=== PATIENT | female | born 2000 | race African-American/Black ===

== ENCOUNTER 2018-02-14 14:07 | Emergency (ER) | payer OTHER ==
[~2018-02-14] VITALS: Ht 160 cm; Wt 63.5 kg
[~2018-02-14 14:07] MED LIST: DEPO-PROVER150 MG/M1 IM; MACROBID 100 M100 M1 PO
[2018-02-14] MEDS ORDERED: PRENATAL PO (14:20)
[2018-02-14] MEDS ORDERED: FLAGYL500 MG PO (14:26)
[2018-02-14 14:59] LABS: URINE BILIRUBIN NEGATIVE (Negative); URINE BLOOD NEGATIVE (Negative); URINE CLARITY CLEAR; URINE COLOR YELLOW; URINE GLUCOSE-RANDOM* NEGATIVE (Negative); URINE KETONES NEGATIVE (Negative); URINE LEUKOCYTES-REFLEX NEGATIVE (Negative); URINE NITRITE-REFLEX NEGATIVE (Negative); URINE PROTEIN (DIPSTICK) NEGATIVE (Negative); URINE SPECIFIC GRAVITY 1.015 (1.005-1.035); URINE UROBILINOGEN 0.2 E.U./dl (0.2-1.0)
[2018-02-14 15:01] LABS: BASOPHILS 0.4 % (0.0-2.0); EOSINOPHILS 0.7 % (0.0-3.0); HEMATOCRIT 39.4 % (37.0-47.0); HEMOGLOBIN 13.3 gm/dL (12.0-15.0); LYMPHOCYTES 24.1 % (24.0-44.0); MCH 29.1 pg (26.0-34.0); MCHC 33.8 g/dL (28.0-37.0); MCV 86.1 fL (80.0-100.0); MONOCYTES 6.1 % (1.0-8.0); PLATELET COUNT 326 thou/uL (150-400); POLYS 68.7 % (36.0-66.0); RBC 4.57 mil/uL (4.20-5.00); RDW 13.6 % (10.5-14.5); WBC 8.7 thou/uL (4.0-11.0)
[2018-02-14 15:06] LABS: CALCIUM 9.5 mg/dL (8.5-10.1); CREATININE 0.7 mg/dL (0.6-1.0)
[2018-02-14 15:09] LABS: POTASSIUM 4.2 mmol/L (3.5-5.1)
[2018-02-14 15:12] LABS: TOTAL BILIRUBIN 0.6 mg/dL (<0.1-1.0)
[2018-02-14] MEDS ORDERED: RANITIDINE 150150 M1 PO (15:39)
[2018-02-14] MEDS ORDERED: REGLAN 10 MG TA10 MG PO (15:40)
[2018-02-14 16:00] VITALS: BP 108/64
== END 2018-02-14 16:01 | disposition home or self-care (01) ==
LOC: ER 14:07
PROVIDERS: Emergency Medicine
DX: O21.9 Vomiting of pregnancy, unspecified (principal); K21.9 Gastro-esophageal reflux disease without esophagitis; Z3A.08 8 weeks gestation of pregnancy